=== PATIENT | male | born 1975 ===

== ENCOUNTER 2023-05-20 12:00 | Day surgery (SDC) | payer OTHER ==
[~2023-05-20] VITALS: Ht 200.7 cm; Wt 151.5 kg
[2023-05-20] MEDS ORDERED: ATOR80 (13:00)
[2023-05-20] MEDS ORDERED: MULTI-VITAMIN1 EAC2 (13:00)
[2023-05-20] MEDS ORDERED: HYDCHL25 (13:00)
[2023-05-20] MEDS ORDERED: FISH OIL 1,2001 EAC7 (13:02)
[2023-05-20 14:57] VITALS: BP 126/71
== END 2023-05-20 14:55 | disposition home or self-care (01) ==
LOC: ORSCSDS 12:00
PROVIDERS: Internal Medicine Gastroenterology
PROC: 0DBM8ZX Excision of Descending Colon, Via Natural or Artificial Opening Endoscopic, Diagnostic (ICD-10-PCS; principal; 2023-05-20 13:15)
DX: Z12.11 Encounter for screening for malignant neoplasm of colon (principal); D12.4 Benign neoplasm of descending colon; K57.30 Diverticulosis of large intestine without perforation or abscess without bleeding; K64.8 Other hemorrhoids; I10 Essential (primary) hypertension; K21.9 Gastro-esophageal reflux disease without esophagitis; Z79.899 Other long term (current) drug therapy
CPT/HCPCS: 88305; J2704; J7120